=== PATIENT | male | born 1980 | race Caucasian/White ===

== ENCOUNTER 2020-04-02 18:04 | Emergency (ER) | payer SELFPAY ==
[2020-04-02 18:12] VITALS: BP 127/77; PULSE 121; RESP 20; TEMP 38.7; O2SAT 97
--- NOTE | 2020-04-02 18:13 | ED.GENADULT ---
HPI - General Adult General Chief complaint: Urogenital-Male Stated complaint: swelling and discharge on penis Time Seen by Provider: 04/02/20 18:36 Source: patient and RN notes reviewed Mode of arrival: ambulatory Limitations: no limitations History of Present Illness HPI narrative: This is a 39 years old male presents to the office for an evaluation of penile discharge for four days. Symtpoms began with penile discharge and painful urinating; then progress to scrotal swelling and redness. Scrotal swelling is worse today; described as squeezing his penis . He also reports urinary urgency, frequency with pain, lower abdominal pressure/pain. He admits to take his girlfriend two dose of antibiotic; but does not know the name. He admits to 3 different partner [id number] for the past 5-year, last sexually activity was about a week to 2 weeks ago. One of his girlfriend is here with him today being seen as well. She has symptoms much longer than him; but has not tested for STD. And another girl that he has been with told him that she has trichomonas. Denies history of STD in the past. No treatment prior to arrival today. Related Data Home Medications Medication Instructions Recorded Confirmed No Home Medications 04/02/20 04/02/20 Allergies Allergy/AdvReac Type Severity Reaction Status Date / Time No Known Allergies Allergy Verified 04/02/20 18:23 Review of Systems Review of Systems: Narrative: CONSTITUTIONAL: Denies fever at home. Reports feeling very ill ENT: Denies congestion CARDIOVASCULAR: Denies chest pain RESPIRATORY: Denies dyspnea, cough GASTROINTESTINAL: Denies diarrhea. GENITOURINARY: Reports urinary pain, frequency, urgency and scrotal pain/swelling SKIN: Denies rash MUSCULOSKELETAL: Reports lower back pain NEUROLOGIC: Denies lightheaded PMFSH Comments At time of signature, I agree with nursing past medical, surgical, social and family history. There is no relevant family history pertinent to the presenting complaint. Exam Narrative: Exam Narrative: GENERAL: This is a well-nourished, well-developed patient, apparent ill; but not in acute distress. CARDIOVASCULAR: tachy, regular rate and rhythm without murmurs, gallops, or rubs. RESPIRATORY: Clear to auscultation. Breath sounds equal bilaterally. No wheezes, rales, or rhonchi. GASTROINTESTINAL: Abdomen soft, non-tender, nondistended. Bowel sounds are active. No hepato-splenomegaly, or palpable masses. No guarding. : ticket sales supervisor by nurse Sena, bilateral scrotal appears edematous and erythema with tenderness to palpation, no ingruinal lymphadenothpy, and penile tips noted thick yellow discharge; no penile lesions noted. SKIN: warm, intact with no suspicious lesions or rash, good texture and turgor. NEURO: awake, alert, and oriented to person, place and time. There were no obvious focal neurologic abnormalities. Steady gait BACK: Nontender without deformity or crepitance. No flank tenderness. [place] Coma Scale Eye Opening: Spontaneous 4 [place] Coma Scale Motor: Obeys Commands 6 [place] Coma Scale Verbal: Oriented 5 Course Vital Signs Vital signs: Vital Signs Temperature 101.6 F H 04/02/20 18:12 Pulse Rate 121 H 04/02/20 18:12 Respiratory Rate 20 04/02/20 18:12 Blood Pressure 127/77 04/02/20 18:12 Pulse Oximetry 97 04/02/20 18:12 Temperature 100.5 F H 04/02/20 19:20 Pulse Rate 105 H 04/02/20 19:20 Respiratory Rate 20 04/02/20 18:12 Blood Pressure 127/77 04/02/20 18:12 Pulse Oximetry 97 04/02/20 18:12 Medical Decision Making MDM Narrative Medical decision making narrative: Discharge instructions reviewed with patient, as well as provided in writing per nursing staff. The instructions also include specific and strict return/GO TO THE ER as well as f/u information. All questions have been answered, and the patient deny any further questions with discharge and discharge plan. Differential Diagnosis Differe
[2020-04-02] MEDS: ACETAMINOPHEN 325 MG TABLET 650 MG PO (18:58)
[2020-04-02] MEDS: AZITHROMYCIN 250 MG TABLET 1000 MG PO (18:59)
[2020-04-02] MEDS: cefTRIAXone 250 MG VIAL IM (19:00)
[2020-04-02] MEDS: LIDOCAINE HCL 1% LOCAL INJ 20 ML VIAL IM (19:00)
[2020-04-02 19:20] VITALS: PULSE 105; TEMP 38.1
== END 2020-04-02 19:20 | disposition home or self-care (01) ==
PROVIDERS: Emergency Provider Nurse Practitioner
DX: Z20.2 Contact with and (suspected) exposure to infections with a predominantly sexual mode of transmission (principal)
CPT/HCPCS: 81003; 87086; 87491; 87591; 87661; 96372; 99213; A9270; G0463; J0696